=== PATIENT | male | born 1970 | race Caucasian/White ===

== ENCOUNTER 2016-11-25 06:08 | Inpatient (IN) ==
--- NOTE | 2016-11-25 06:43 | EKG Report ---
Stationary ECG Study [facility] ER Test Date: 11/25/2016 6:42:04 AM Pat Name: BOB REHMAN Department: Room: Gender: M Column Precaster: : 1970 Requested by: Pineda De Santiago Order Number: [id number] Reading MD: JORDI STOKES Intervals [place] Rate: 94 P: 49 PA: 169 QRS: 240 QRSD: 161 T: 29 QT: 402 QTc: 453 Interpretive Statements SINUS RHYTHM MARKED RIGHT AXIS DEVIATION RIGHT BUNDLE BRANCH BLOCK ANTEROSEPTAL MYOCARDIAL INFARCTION, OF INDETERMINATE AGE Electronically Signed On 11-25-16 07:05:58 CDT by JORDI STOKES [email or web address]
--- NOTE | 2016-11-25 06:52 | Emergency Department Note ---
Misbah Langley Hilary, am scribing for, and in the presence of, Pineda Plummer MD 06: 44. Kavitha Langley James D, MD, personally performed the services described in this documentation, ascribed by Marcela Crawley in my presence, and it is both accurate and complete 648 . Arrival - Arrival Chief Complaint: Extremity Problem Stated Complaint: possible staph infection ED Nursing Triage Note: C/C red streak running from pt right hand up his forearm , arm is painful. Went to [facility] ER yesterday, wound to right hand was cultured and pt given clindamycin (IV) and Rx. Pt states reddness and pain is worse now. Mode of Arrival: Ambulatory Limitations: No Limitations Source: Patient Time Seen by Provider: 11/25/16 06:26 - History of Present Illness HPI Narrative: Patient is a 46 year old white Male presenting to the ED with right hand and forearm pain with an onset of Friday. Went to [facility] ER yesterday and was given clindamycin and RX. He confirms that this is not the first time he has had this pain and denies any other complaints or problems in the ED. Onset (ago): day(s) Allergies/Adverse Reactions: Allergies Allergy/AdvReac Type Severity Reaction Status Date / Time No Known Allergies Allergy Verified 11/25/16 06:18 Home Medications: Home Medications Medication Instructions Recorded Confirmed Type Acetaminophen Tab [Tylenol Tab] 325 mg PO Q4H PRN #0 tablet 04/20/16 11/25/16 Rx Albuterol Inhaler [Proventil 2 puff INH Q4H PRN #1 inhaler 04/20/16 11/25/16 Rx Inhaler] Apixaban [Eliquis] 5 mg PO BID #60 tablet 04/20/16 11/25/16 Rx Aspirin Chew Tab 81 mg PO DAILY tablet 04/20/16 11/25/16 Rx Atorvastatin [Lipitor] 40 mg PO DAILY #30 tablet 04/20/16 11/25/16 Rx Carvedilol [Coreg] 6.25 mg PO BID #60 tablet 04/20/16 11/25/16 Rx Diltiazem Tab [Cardizem Tab] 60 mg PO BID #60 tablet 04/20/16 11/25/16 Rx Furosemide Tab [Lasix Tab] 40 mg PO DAILY #30 tablet 04/20/16 11/25/16 Rx Skin Healing Oint (Aquaphor) 1 applic TOP PRN PRN #0 ointment 04/20/16 11/25/16 Rx [Aquaphor] hydrALAZINE TAB [Apresoline Tab] 25 mg PO TID #90 tablet 04/20/16 11/25/16 Rx Review of System - Review of System 12 point system: reviewed and no additional remarkable complaints except as stated - Review of System Skin: Present: rash Medical,Surgical,& Family Hx - Medical History Cardio: History of: Cardiac Dysrhythmia (A-fib), CHF, Hypertension, [place] (APR 2015, proximal LAD stent) Neurology: History of: Migraine HEENT: History of: Dental Problems (poor dentition. He is having teeth removed and plans to get dentures) Endocrine: History of: Dyslipidemia, Endocrine Problems (anxiety chest obesity, weighs 486 pounds.) Musculoskeletal: History of: Musculoskeletal Problems (left knee pain) - Surgical History Cardiac Surgeries: Sugical HX of: Cardiac Catheterization Abdominal Surgeries: Surgical HX of: Appendectomy, Cholecystectomy - Family History Family History: Reports;: Family Cancer (mom-lung, dad-throat, dad-skin), Family Diabetes (dad) - Social History Smoking Status: Never smoker Frequency of Alcohol Use: None Type of Drug Use: None Exam Physical Examination: GENERAL: This is a well-nourished, well-developed male in no apparent distress. VITAL SIGNS: HEENT: Head is normocephalic and atraumatic. Pupils are equally round and reactive to light. Extraocular movement are intact. Oropharynx is benign with moist mucous membranes. NECK: Neck is soft and supple without tenderness. There are no masses. There is no lymphadenopathy. LUNGS: Lungs are clear to auscultation bilaterally. Chest rises symmetrically. There is no chest wall tenderness. CV: Heart is regular rate and rhythm without murmurs, rubs, or gallops. ABDOMEN: Abdomen is soft, non-tender to palpation. There are no abnormal masses palpated. There is no organomegaly. Bowel sounds are present and active. SKIN: Left hand fluctuant and errythema radiating up his arm. EXTREMITIES: Patient has an area of erythema and induration on the dumont surface of the Right hand. Erythema extends up the medial side of the arm to above the elbow. NEUROLOGIC: Awake, alert, and oriented x4. Cranial nerves II through XII are grossly intact. There are no motorsensory deficits. PSYCHIATRIC: Normal affect. Normal mood. Vital Signs: Vital Signs Temperature 97.8 F 11/25/16 06:22 Pulse Rate 86 11/25/16 07:00 Respiratory Rate 18 11/25/16 07:00 Blood Pressure 165/97 11/25/16 07:00 O2 Sat by Pulse Oximetry 97 11/25/16 07:00 - General General appearance: alert, in no apparent distress Course - Consultations Consultation #1: Discussed with Dr. Esqueda. Patient will need to be taken to surgery for I&D Time: 07:15 Results - Labs CBC & BMP: 11/25/16 06:42 Lab Results: I have reviewed the patients labs Labs: Laboratory Tests 11/25/16 06:42 WBC 9.2 RBC 4.42 Hgb 13.4 L Hct 40.3 L - EKG EKG results: interpreted by ERMD - Impressions EKG: Normal sinus rhythm with rate of 94, right bundle branch block, right axis deviation. Nonspecific ST-T wave changes. - Diagnostic Findings Procedure: Chest x-ray: image reviewed by me, X-ray: image reviewed by me ( Right hand x-ray:) Disposition Clinical Impression: Abscess of right hand, Right arm cellulitis Case discussed with: patient Disposition: Still a Patient Condition: Stable
[2016-11-25] MEDS ORDERED: HYDROmorphone 2 MG/1 ML VIAL IV STA (06:53)
[2016-11-25] MEDS ORDERED: ONDANSETRON 4 MG/2 ML VIAL IV STA (06:53)
[2016-11-25] MEDS ORDERED: HYDROmorphone 2 MG/1 ML VIAL ONE (06:57)
[2016-11-25] MEDS ORDERED: ONDANSETRON 4 MG/2 ML VIAL ONE (06:57)
[2016-11-25 07:12] LABS: Basophils % 0.3 % (0.0-0.8); Eosinophils # 0.1 10*3/uL (0.0-0.87); Eosinophils % 0.8 % (0.00-10.9); Hematocrit 40.3 VOL% (42.0-52.0); Hemoglobin 13.4 GM/DL (14.0-18.0); Immature Granulocytes % 0.3 %; Immature Granulocytes Absolute 0.03 #; Lymphocytes # 2.4 10*3/uL (1.4-4.0); Mean Corpuscular HGB Conc 33.3 GM/DL (32-36); Mean Corpuscular Hemoglobin 30 PG (27-34); Mean Corpuscular Volume 91.2 FL (87-102); Mean Platelet Volume 11.1 FL (9.6-12.0); Monocytes # 0.8 10*3/uL (0.11-0.8); Monocytes % 8.4 % (1.7-12.7); Neutrophils # 5.9 10*3/uL (1.4-7.4); Neutrophils % 64.2 % (38.7-73.9); Platelet Count 157 T/CUMM (130-400); Red Blood Count 4.42 MC/CUMM (3.8-5.5); Red Cell Distribution Width 14.2 % (9.3-17.3); White Blood Count 9.2 T/CUMM (4-12)
[2016-11-25 07:22] LABS: INR 1.1; PT Patient Result 11.3 SECS
[2016-11-25] MEDS ORDERED: CLINDAMYCIN INJ 900 MG in PREMIX 1 EACH IV ONE (07:40)
[2016-11-25] MEDS ORDERED: ONDANSETRON 4 MG/2 ML VIAL IV PRN (07:40)
[2016-11-25] MEDS ORDERED: MAGNESIUM HYDROXIDE SUSP 30 ML UDCUP PO PRN ×2 (07:40→12:03)
[2016-11-25 07:44] LABS: Albumin 3.5 G/DL (3.4-5.0); Bilirubin,Total 0.8 MG/DL (0.2-1.0); Calcium 8.4 MG/DL (8.5-10.1); Osmolality,Calculated 277.8 MOS/KG (273-304); Total Protein 6.7 G/DL (6.4-8.3)
--- NOTE | 2016-11-25 07:53 | XRay Report ---
History is respiratory distress atrial fibrillation Comparison 04/19/2016 The cardiac silhouette is moderately enlarged. There is vascular congestion with minimal interstitial edema however there is less pronounced appearance than on the prior study. No more focal consolidation is seen. Confluent shadows overlie the right upper chest Impression: Mild Pulmonary edema PROCEDURE INTERPRETED AT [facility] DEPARTMENT OF RADIOLOGY Final Report Signed by: Dr. Es Parkinson
--- NOTE | 2016-11-25 07:56 | XRay Report ---
Right hand, 3 views History right hand abscess No acute osseous, articular, or soft tissue abnormality seen. Impression: No acute pathology seen. PROCEDURE INTERPRETED AT [facility] DEPARTMENT OF RADIOLOGY Final Report Signed by: Dr. Es Parkinson
--- NOTE | 2016-11-25 08:30 | Orthopedic History & Physical ---
Assessment and Plan (1) Abscess of right hand Status: Acute Assessment and plan: Discussed findings with patient today. I recommended I&D of hand with admission for IV antibiotics until we have culture results. Risks and benefits were discussed, he voiced understanding and desired to proceed. Risks discussed, but are not limited to, bleeding, persistent infection, damage to nerves, recurrence, stiffness of the digits, need for revision surgery. We will get him on the schedule for today. He did eat breakfast at 5 AM. Current Visit: Yes History of Present Illness Chief complaint: Right hand infection History of present illness: Mr. Jin is a 46 year old male who has a 48 hour history of pain and swelling in the right hand. He was seen in outside emergency department yesterday, given IV and oral antibiotics. His symptoms worsen so he presented to [facility] emergency department this morning. He denies any constitutional symptoms. Had a previous injury to this hand approximately 15 years ago with a subsequent infection about 12 years ago, but has had no recent issues. He does state that he previously had a staph infection. Home Medications Medication Instructions Recorded Confirmed Type Acetaminophen Tab [Tylenol Tab] 325 mg PO Q4H PRN #0 tablet 04/20/16 11/25/16 Rx Albuterol Inhaler [Proventil 2 puff INH Q4H PRN #1 inhaler 04/20/16 11/25/16 Rx Inhaler] Apixaban [Eliquis] 5 mg PO BID #60 tablet 04/20/16 11/25/16 Rx Aspirin Chew Tab 81 mg PO DAILY tablet 04/20/16 11/25/16 Rx Atorvastatin [Lipitor] 40 mg PO DAILY #30 tablet 04/20/16 11/25/16 Rx Carvedilol [Coreg] 6.25 mg PO BID #60 tablet 04/20/16 11/25/16 Rx Diltiazem Tab [Cardizem Tab] 60 mg PO BID #60 tablet 04/20/16 11/25/16 Rx Furosemide Tab [Lasix Tab] 40 mg PO DAILY #30 tablet 04/20/16 11/25/16 Rx Skin Healing Oint (Aquaphor) 1 applic TOP PRN PRN #0 ointment 04/20/16 11/25/16 Rx [Aquaphor] hydrALAZINE TAB [Apresoline Tab] 25 mg PO TID #90 tablet 04/20/16 11/25/16 Rx Allergies Allergy/AdvReac Type Severity Reaction Status Date / Time No Known Allergies Allergy Verified 11/25/16 08:27 12 point system: reviewed and no additional remarkable complaints except as stated Medical,Surgical,& Family Hx - Medical History Cardio: History of: Cardiac Dysrhythmia (A-fib), CHF, Hypertension, [place] (APR 2015, proximal LAD stent) Neurology: History of: Migraine HEENT: History of: Dental Problems (poor dentition. He is having teeth removed and plans to get dentures) Endocrine: History of: Dyslipidemia, Endocrine Problems (anxiety chest obesity, weighs 486 pounds.) Musculoskeletal: History of: Musculoskeletal Problems (left knee pain) - Surgical History Cardiac Surgeries: Sugical HX of: Cardiac Catheterization Abdominal Surgeries: Surgical HX of: Appendectomy, Cholecystectomy - Family History Family History: Reports;: Family Cancer (mom-lung, dad-throat, dad-skin), Family Diabetes (dad) - Social History Smoking Status: Never smoker Frequency of Alcohol Use: None Type of Drug Use: None Exam - Constitutional Vitals: Period Temp Pulse Resp BP Sys/Yousif Pulse Ox Last 24 Hr 97.8 F-97.8 F 83-100 18-20 163-165/89-97 95-97 Exam: General appearance: no acute distress Head exam: normal inspection Eye exam: EOMI Neck exam: normal inspection Respiratory exam: clear to auscultation bilaterally Cardiovascular exam: regular GI/Abdominal exam: normal bowel sounds Right upper extremity: Erythema in the palm streaking up toward the medial elbow. He has a small 1 x 1 cm abscess in the central aspect of the erythematous portion which along the hyperthenar eminence. He can wiggle his fingers. He has brisk capillary refill. Sensation is intact. Results - Labs CBC & BMP: 11/25/16 06:42 11/25/16 06:42 - Diagnostic Findings Procedure: X-ray: image reviewed by me (Grafts the right hand were reviewed, no foreign bodies noted, soft tissue swelling)
[2016-11-25] MEDS ORDERED: VANCOMYCIN INJ 1,000 MG in SODIUM CHLORIDE 0.9% 250 ML IV ONE (08:31)
[2016-11-25] MEDS ORDERED: VANCOMYCIN 1,000 MG VIAL ONE ×2 (09:09→11:43)
[2016-11-25] MEDS ORDERED: FAMOTIDINE 20 MG TABLET PO ONE (09:22)
[2016-11-25] MEDS ORDERED: METOCLOPRAMIDE 10 MG TABLET PO ONE (09:23)
[2016-11-25] MEDS ORDERED: LACTATED RINGERS 1,000 ML IV SCH (09:30)
[2016-11-25] MEDS ORDERED: SODIUM CHLORIDE 0.9% 1,000 ML IV SCH (09:30)
[2016-11-25] MEDS ORDERED: LIDOCAINE 2% 5 ML VIAL ONE (11:26)
[2016-11-25] MEDS ORDERED: SKIN HEALING OINT (AQUAPHOR) 50 GM TUBE TOP PRN (12:03)
[2016-11-25] MEDS ORDERED: ACETAMINOPHEN 325 MG TABLET PO PRN (12:03)
[2016-11-25] MEDS ORDERED: KETAMINE 500 MG/10 ML VIAL ONE (12:11)
[2016-11-25] MEDS ORDERED: KETOROLAC 15 MG/1 ML VIAL IV PRN (14:00)
[2016-11-25] MEDS ORDERED: ALBUTEROL 2.5 MG/3 ML NEB RESP TX PRN (14:00)
[2016-11-25 15:09] LABS: Free T4 (Free Thyroxine) 0.9 NG/DL (0.76-1.46); Risk Ratio 3.35; T4 (Thyroxine) 6.8 UG/DL (4.7-13.3); Thyroid Stimulating Hormone 0.95 uIU/ml (0.358-3.74); VLDL CHOLESTEROL 25.6 MG/DL
--- NOTE | 2016-11-25 15:30 | Hospitalist Consult Note ---
Assessment and Plan - Time spent with patient Time spent with patient: Less than 30 minutes (1) Hypertension Status: Acute Assessment and plan: Will resume all home medications as previously ordered. Will adjust accordingly. Current Visit: No (2) Hyperlipidemia Status: Acute Assessment and plan: Will manage medically throughout the clinical encounter. Obtain lipid panel in AM. Current Visit: No (3) Abscess of right hand Status: Acute Assessment and plan: Will continue antibiotic therapy as ordered per surgery. Current Visit: Yes History of Present Illness - Data of Consult Consult date: 11/25/16 Requesting Physician: Reinier Esqueda - Consult Narrative Reason for consult: Medical management History of present illness: Mr. Jin is a 46 year old male that presented to the ED this morning with a chief compliant of right hand and forearm pain. Apparently; he was seen at [facility] for the same presenting complaint on Friday. He was evaluated and given clindamycin. He reports that his symptoms failed to improve and that the pain became unbearable; which warranted him to seek medical attention. He seen and evaluated in the ED and a surgical consult was requested. He was seen per surgery and subsequently underwent a incision and drainage of the right hand this afternoon. He has a rather complicated medical history of obstructive sleep apnea, hypertension, morbid obesity, hyperlipdemia , hypertension, atrial fibrillation with RVR, chronic renal failure, and cellulitis. Due to his extensive medical history, we were consulted for medical management. CC: Reinier Esqueda MD - Home Medications and Allergies Home Medications: Home Medications Medication Instructions Recorded Confirmed Type Acetaminophen Tab [Tylenol Tab] 325 mg PO Q4H PRN #0 tablet 04/20/16 11/25/16 Rx Albuterol Inhaler [Proventil 2 puff INH Q4H PRN #1 inhaler 04/20/16 11/25/16 Rx Inhaler] Apixaban [Eliquis] 5 mg PO BID #60 tablet 04/20/16 11/25/16 Rx Aspirin Chew Tab 81 mg PO DAILY tablet 04/20/16 11/25/16 Rx Atorvastatin [Lipitor] 40 mg PO DAILY #30 tablet 04/20/16 11/25/16 Rx Carvedilol [Coreg] 6.25 mg PO BID #60 tablet 04/20/16 11/25/16 Rx Diltiazem Tab [Cardizem Tab] 60 mg PO BID #60 tablet 04/20/16 11/25/16 Rx Furosemide Tab [Lasix Tab] 40 mg PO DAILY #30 tablet 04/20/16 11/25/16 Rx Skin Healing Oint (Aquaphor) 1 applic TOP PRN PRN #0 ointment 04/20/16 11/25/16 Rx [Aquaphor] hydrALAZINE TAB [Apresoline Tab] 25 mg PO TID #90 tablet 04/20/16 11/25/16 Rx Allergies/Adverse Reactions: Allergies Allergy/AdvReac Type Severity Reaction Status Date / Time No Known Allergies Allergy Verified 11/25/16 08:27 Medical,Surgical,& Family Hx - Medical History Cardio: History of: Cardiac Dysrhythmia (A-fib), CHF, Hypertension, CT (APR 2015, proximal LAD stent) Neurology: History of: Migraine No history of: Seizures HEENT: History of: Dental Problems (poor dentition. He is having teeth removed and plans to get dentures) Endocrine: History of: Dyslipidemia, Endocrine Problems (anxiety chest obesity, weighs 486 pounds.) Respiratory: History of: Obstructive Sleep Apnea (c-pap) Musculoskeletal: History of: Musculoskeletal Problems (left knee pain) - Surgical History Cardiac Surgeries: Sugical HX of: Cardiac Catheterization HEENT Surgeries: Surgical HX of: Tonsilectomy & Adenoidectomy Abdominal Surgeries: Surgical HX of: Appendectomy, Cholecystectomy - Family History Family History: Reports;: Family Cancer (mom-lung, dad-throat, dad-skin), Family Diabetes (dad) - Social History Smoking Status: Never smoker Frequency of Alcohol Use: None Type of Drug Use: None 12 point system: reviewed and no additional remarkable complaints except as stated Exam - Constitutional Vitals: Period Temp Pulse Resp BP Sys/Yousif Pulse Ox Last 24 Hr 97.6 F-98.6 F 83-104 14-20 120-166/73-98 93-99 General appearance: normal weight, morbidly obese - Head Head exam: Present: normal inspection, normocephalic, atraumatic - Eye Eye exam: Present: EOMI. Absent: conjunctival injection Pupils: Present: VALERI, normal accommodation - ENT ENT exam: Present: normal exam - Neck Neck exam: Present: normal inspection. Absent: lymphadenopathy, meningismus, tenderness, thyromegaly - Respiratory Respiratory exam: Present: decreased breath sounds. Absent: rales, rhonchi, stridor, wheezes - Cardiovascular Cardiovascular exam: Present: regular rate and rhythm. Absent: gallop, JVD, rubs - GI/Abdominal GI/Abdominal exam: Present: normal bowel sounds, soft - Extremities Exam Extremities exam: Present: edema - Back Exam Back exam: Present: normal inspection - Neurological Exam Neurological exam: Present: alert, oriented X3, CN II-XII intact - Psychiatric Psychiatric exam: Present: normal affect - Skin Skin exam: Present: normal color, warm, dry Results - Labs CBC & BMP: 11/25/16 06:42 11/25/16 06:42 Lab Results: I have reviewed the past 24 hour labs
[2016-11-25] MEDS: hydrALAZINE 25 MG TABLET PO SCH ×2 (15:53→21:26)
[2016-11-25] MEDS: ACETAMINOPHEN 500 MG TABLET PO SCH ×2 (15:57→21:26)
[2016-11-25] MEDS ORDERED: DEXTROSE 50% 25 GM/50 ML VIAL IV PRN (16:20)
[2016-11-25] MEDS ORDERED: GLUCAGON 1 MG VIAL IM PRN (16:20)
[2016-11-25] MEDS: CARVEDILOL 6.25 MG TABLET PO SCH (18:11)
[2016-11-25] MEDS: INSULIN LISPRO 100 UNIT/ML SUBCUT SCH ×2 (19:31→21:26)
--- NOTE | 2016-11-25 19:43 | Anesthesia ---
Anesthesia Post OP - Post Ansesthetic Evaluation Patient seen in post op: Yes Resp: within normal limits CV: within normal limits Mental: within normal limits Temp: within normal limits [id number]: within normal limits Nausea and Vomiting: within normal limits Pain: within normal limits
[2016-11-25] MEDS: HYDROmorphone 2 MG/1 ML VIAL IV PRN (20:03)
[2016-11-25] MEDS: VANCOMYCIN INJ 3,000 MG in SODIUM CHLORIDE 0.9% 500 ML IV SCH (20:06)
[2016-11-25] MEDS: APIXABAN 5 MG TABLET PO SCH (21:25)
[2016-11-25] MEDS: DILTIAZEM 60 MG TABLET PO SCH (21:25)
[2016-11-26] MEDS: SODIUM CHLORIDE 0.9% 1,000 ML IV SCH ×3 (03:23→10:02)
[2016-11-26] MEDS: ACETAMINOPHEN 500 MG TABLET PO SCH ×2 (04:18→09:49)
--- NOTE | 2016-11-26 06:38 | Orthopedic Progress Note ---
Assessment and Plan (1) Abscess of right hand Status: Acute Assessment and plan: cont IV abx f/u Cx daily packing change appreciated hospitalist c/s Current Visit: Yes Orthopedics - Subjective Interval history: No new c/o no purulence noted. erythema in palm and forearm unchanged. cx pending Exam - Constitutional Vitals: Period Temp Pulse Resp BP Sys/Yousif Pulse Ox Last 24 Hr 96.3 F-98.8 F 77-104 14-20 120-175/72-99 93-98 Results - Labs CBC & BMP: 11/26/16 06:16 11/26/16 06:16
[2016-11-26 06:41] LABS: Basophils % 0.2 % (0.0-0.8); Eosinophils # 0.1 10*3/uL (0.0-0.87); Eosinophils % 1.3 % (0.00-10.9); Hematocrit 41.3 VOL% (42.0-52.0); Immature Granulocytes % 0.2 %; Immature Granulocytes Absolute 0.02 #; Lymphocytes # 1.7 10*3/uL (1.4-4.0); Lymphocytes % 20.4 % (21.2-54.2); Mean Corpuscular HGB Conc 31.5 GM/DL (32-36); Mean Corpuscular Hemoglobin 30 PG (27-34); Mean Corpuscular Volume 93.9 FL (87-102); Mean Platelet Volume 10.4 FL (9.6-12.0); Monocytes # 0.7 10*3/uL (0.11-0.8); Monocytes % 7.6 % (1.7-12.7); Neutrophils % 70.3 % (38.7-73.9); Platelet Count 151 T/CUMM (130-400); Red Cell Distribution Width 14.2 % (9.3-17.3); White Blood Count 8.5 T/CUMM (4-12)
[2016-11-26 07:13] LABS: Albumin 3.4 G/DL (3.4-5.0); Bilirubin,Total 1.1 MG/DL (0.2-1.0); Calcium 8.3 MG/DL (8.5-10.1); Magnesium 2.2 MG/DL (1.8-2.4); Osmolality,Calculated 283.1 MOS/KG (273-304); Phosphorous 2.7 MG/DL (2.5-4.9); Total Protein 6.4 G/DL (6.4-8.3)
--- NOTE | 2016-11-26 07:50 | XRay Report ---
Referring Physician: ARNIE Mann Exam: XR chest 1V portable Date: November 26, 2016 at 6:04 AM Reason: COPD Comparison: Chest one view portable November 25, 2016 Findings: The cardiac silhouette is again enlarged. The interstitial markings are slightly prominent bilaterally, which could reflect minimal pulmonary edema. No pneumothorax or pleural effusion is identified. No acute osseous process is seen. Impression: There has been no significant change. PROCEDURE INTERPRETED AT [facility] DEPARTMENT OF RADIOLOGY Final Report Signed by: Dr. Samir Samuel
[2016-11-26] MEDS: INSULIN LISPRO 100 UNIT/ML SUBCUT SCH ×4 (09:45→20:02)
--- NOTE | 2016-11-26 09:45 | Hospitalist Progress Note ---
Assessment and Plan (1) Morbid obesity Status: Chronic Assessment and plan: 1 afib- tele looks like sinus rhythm. On eliquis and betablocker. 2)WILLIS- use CPAP 3)morbid obesity 4)hyperlipidemia- cont meds 5)HTN- controlled 6)h/o NC 7)diabetes- He told me yesterday that he didn't have diabetes, (he is on multiple meds for it) but that he worried he did. he has seen the educators in the past, and I will ask them to see him again today. he has a glucometer but doesn't use it. Continue his home meds. HGBA1C looks ok. Current Visit: No (2) Obstructive sleep apnea Status: Chronic Current Visit: No (3) Smoker Status: Chronic Current Visit: No (4) Hyperlipidemia Status: Acute Current Visit: No (5) History of NC (myocardial infarction) Status: Chronic Current Visit: No (6) Hyperglycemia Status: Acute Current Visit: No (7) Obesity hypoventilation syndrome Status: Chronic Current Visit: No (8) Chronic renal failure Status: Acute Current Visit: No (9) Abscess of right hand Status: Acute Current Visit: Yes Hospitalist: Subjective Interval history: Mr Jin is doing well. No new complaints. He says the erythema in his hand has improved a lot and there is less redness in his arm as well. No CP, no shortness of breath, no palpitations. Tele with NSR. Exam - Constitutional Vitals: Period Temp Pulse Resp BP Sys/Yousif Pulse Ox Last 24 Hr 96.3 F-98.8 F 77-104 14-20 120-175/72-99 93-98 General appearance: no acute distress, morbidly obese - Eye Eye exam: Present: EOMI. Absent: scleral icterus - Respiratory Respiratory exam: Present: clear to auscultation bilaterally - Cardiovascular Cardiovascular exam: Present: regular rate and rhythm - GI/Abdominal GI/Abdominal exam: Present: normal bowel sounds, soft. Absent: tenderness - Extremities Exam Extremities exam: Absent: edema - Neurological Exam Neurological exam: Present: alert, oriented X3 - Skin Skin exam: Present: warm, dry Results - Labs CBC & BMP: 11/26/16 06:16 11/26/16 06:16 Lab Results: I have reviewed the past 24 hour labs (tele with NSR)
[2016-11-26] MEDS: DILTIAZEM 60 MG TABLET PO SCH ×2 (09:48→20:01)
[2016-11-26] MEDS: FUROSEMIDE 40 MG TABLET PO SCH (09:48)
[2016-11-26] MEDS: hydrALAZINE 25 MG TABLET PO SCH ×3 (09:48→20:01)
[2016-11-26] MEDS: ATORVASTATIN 40 MG TABLET PO SCH (09:49)
[2016-11-26] MEDS: VANCOMYCIN INJ 3,000 MG in SODIUM CHLORIDE 0.9% 500 ML IV SCH ×2 (09:49→20:02)
[2016-11-26] MEDS: APIXABAN 5 MG TABLET PO SCH ×2 (09:49→20:01)
[2016-11-26] MEDS: CARVEDILOL 6.25 MG TABLET PO SCH ×2 (09:49→16:00)
[2016-11-26] MEDS: ASPIRIN CHEW 81 MG TABLET PO SCH (09:49)
[2016-11-26] MEDS: HYDROmorphone 2 MG/1 ML VIAL IV PRN (09:54)
[2016-11-26] MEDS ORDERED: ACETAMINOPHEN 325 MG TABLET PO PRN (16:00)
[2016-11-27] MEDS: CARVEDILOL 6.25 MG TABLET PO SCH ×2 (10:56→19:49)
[2016-11-27] MEDS: DILTIAZEM 60 MG TABLET PO SCH ×2 (10:57→21:10)
[2016-11-27] MEDS: ASPIRIN CHEW 81 MG TABLET PO SCH (10:57)
[2016-11-27] MEDS: ATORVASTATIN 40 MG TABLET PO SCH (10:58)
[2016-11-27] MEDS: FUROSEMIDE 40 MG TABLET PO SCH (10:58)
[2016-11-27] MEDS: hydrALAZINE 25 MG TABLET PO SCH ×3 (10:59→21:11)
[2016-11-27] MEDS: APIXABAN 5 MG TABLET PO SCH ×2 (11:00→21:10)
[2016-11-27] MEDS: INSULIN LISPRO 100 UNIT/ML SUBCUT SCH ×4 (11:00→21:30)
[2016-11-27] MEDS: VANCOMYCIN INJ 3,000 MG in SODIUM CHLORIDE 0.9% 500 ML IV SCH (11:09)
--- NOTE | 2016-11-27 14:15 | Hospitalist Progress Note ---
Assessment and Plan (1) Morbid obesity Status: Chronic Assessment and plan: 1 afib- tele looks like sinus rhythm. On eliquis and betablocker. 2)WILLIS- use CPAP 3)morbid obesity 4)hyperlipidemia- cont meds 5)HTN- controlled 6)h/o NE 7)diabetes- controlled with SSI, diet now. Current Visit: No (2) Obstructive sleep apnea Status: Chronic Current Visit: No (3) Smoker Status: Chronic Current Visit: No (4) Hyperlipidemia Status: Acute Current Visit: No (5) History of NE (myocardial infarction) Status: Chronic Current Visit: No (6) Hyperglycemia Status: Acute Current Visit: No (7) Obesity hypoventilation syndrome Status: Chronic Current Visit: No (8) Chronic renal failure Status: Acute Current Visit: No (9) Abscess of right hand Status: Acute Current Visit: Yes Hospitalist: Subjective Interval history: Mr Jin is about the same. He says his hand isn't throbbing as much as it was. Exam - Constitutional Vitals: Period Temp Pulse Resp BP Sys/Yousif Pulse Ox Last 24 Hr 97.7 F-98.9 F 81-88 18-24 143-166/80-91 92-94 General appearance: no acute distress, morbidly obese - Head Head exam: Present: normocephalic, atraumatic - Eye Eye exam: Present: EOMI. Absent: scleral icterus - Respiratory Respiratory exam: Present: clear to auscultation bilaterally - Cardiovascular Cardiovascular exam: Present: regular rate and rhythm - GI/Abdominal GI/Abdominal exam: Present: normal bowel sounds, soft. Absent: tenderness - Extremities Exam Extremities exam: Absent: edema - Skin Skin exam: Present: erythema (hand wrapped. the lymphangitis in right forearm is fading and does not pass his elbow. ) Results - Labs CBC & BMP: 11/26/16 06:16 11/26/16 06:16 Lab Results: I have reviewed the past 24 hour labs
--- NOTE | 2016-11-27 17:35 | Orthopedic Progress Note ---
Assessment and Plan (1) Abscess of right hand Status: Acute Assessment and plan: d/c Vanc, change to Teflaro since erythema unchanged f/u Cx daily packing change appreciate hospitalist c/s Current Visit: Yes Orthopedics - Subjective Interval history: Pt states his hand feels better erythema is unchanged from preop, less tender Cx - no growth Exam - Constitutional Vitals: Period Temp Pulse Resp BP Sys/Yousif Pulse Ox Last 24 Hr 97.7 F-98.9 F 81-87 18-22 143-166/80-88 92-93 Results - Labs CBC & BMP: 11/26/16 06:16 11/26/16 06:16
[2016-11-27] MEDS: CEFTAROLINE 600 MG in SODIUM CHLORIDE 0.9% 100 ML IV SCH (22:51)
--- NOTE | 2016-11-28 07:55 | Orthopedic Progress Note ---
Assessment and Plan (1) Abscess of right hand Status: Acute Assessment and plan: Continue Teflaro f/u Cx daily dressing change We will consider discharge home tomorrow as long as symptoms are improved Current Visit: Yes Orthopedics - Subjective Interval history: No new complaints. Pain appears to be improving. On exam I think his erythema looks a little better particularly in the palm Cultures negative Exam - Constitutional Vitals: Period Temp Pulse Resp BP Sys/Yousif Pulse Ox Last 24 Hr 97.5 F-98.2 F 80-85 16-20 147-176/84-89 90-96 Results - Labs CBC & BMP: 11/26/16 06:16 11/26/16 06:16
[2016-11-28] MEDS: INSULIN LISPRO 100 UNIT/ML SUBCUT SCH ×3 (08:48→23:06)
--- NOTE | 2016-11-28 09:23 | Hospitalist Progress Note ---
Assessment and Plan (1) Morbid obesity Status: Chronic Assessment and plan: 1 afib- tele looks like sinus rhythm. On eliquis and betablocker. DC monitor. 2)WILLIS- use CPAP 3)morbid obesity 4)hyperlipidemia- cont meds 5)HTN- controlled 6)h/o [place] 7)diabetes- controlled with SSI, diet now. 8)abscess/cellulitis of right hand- Dr Esqueda changed him to Teflaro yesterday. Current Visit: No (2) Obstructive sleep apnea Status: Chronic Current Visit: No (3) Smoker Status: Chronic Current Visit: No (4) Hyperlipidemia Status: Acute Current Visit: No (5) History of VA (myocardial infarction) Status: Chronic Current Visit: No (6) Hyperglycemia Status: Acute Current Visit: No (7) Obesity hypoventilation syndrome Status: Chronic Current Visit: No (8) Chronic renal failure Status: Acute Current Visit: No (9) Abscess of right hand Status: Acute Current Visit: Yes Hospitalist: Subjective Interval history: NO complaints, feels ok. No events on tele- will stop quality assurance monitor. Exam - Constitutional Vitals: Period Temp Pulse Resp BP Sys/Yousif Pulse Ox Last 24 Hr 97.5 F-98.2 F 80-85 16-20 147-176/84-89 90-96 General appearance: no acute distress, morbidly obese - Respiratory Respiratory exam: Present: clear to auscultation bilaterally - Cardiovascular Cardiovascular exam: Present: regular rate and rhythm - GI/Abdominal GI/Abdominal exam: Present: normal bowel sounds, soft - Extremities Exam Extremities exam: Present: other (right hand dressed, still with lymphangitic streak up forearm, fainter than yesterday. ) Results - Labs CBC & BMP: 11/26/16 06:16 11/26/16 06:16 Lab Results: I have reviewed the past 24 hour labs
[2016-11-28] MEDS: ASPIRIN CHEW 81 MG TABLET PO SCH (09:37)
[2016-11-28] MEDS: DILTIAZEM 60 MG TABLET PO SCH ×2 (09:38→22:02)
[2016-11-28] MEDS: APIXABAN 5 MG TABLET PO SCH ×2 (09:38→22:02)
[2016-11-28] MEDS: hydrALAZINE 25 MG TABLET PO SCH ×3 (09:38→22:02)
[2016-11-28] MEDS: CARVEDILOL 6.25 MG TABLET PO SCH ×2 (09:39→17:23)
[2016-11-28] MEDS: FUROSEMIDE 40 MG TABLET PO SCH (09:40)
[2016-11-28] MEDS: ATORVASTATIN 40 MG TABLET PO SCH (09:44)
[2016-11-28] MEDS: CEFTAROLINE 600 MG in SODIUM CHLORIDE 0.9% 100 ML IV SCH ×2 (10:15→22:03)
[2016-11-29] MEDS: INSULIN LISPRO 100 UNIT/ML SUBCUT SCH ×2 (08:46→12:15)
[2016-11-29] MEDS: APIXABAN 5 MG TABLET PO SCH (09:11)
[2016-11-29] MEDS: FUROSEMIDE 40 MG TABLET PO SCH (09:11)
[2016-11-29] MEDS: ATORVASTATIN 40 MG TABLET PO SCH (09:11)
[2016-11-29] MEDS: ASPIRIN CHEW 81 MG TABLET PO SCH (09:11)
[2016-11-29] MEDS: hydrALAZINE 25 MG TABLET PO SCH (09:12)
[2016-11-29] MEDS: DILTIAZEM 60 MG TABLET PO SCH (09:12)
[2016-11-29] MEDS: CARVEDILOL 6.25 MG TABLET PO SCH (09:13)
[2016-11-29] MEDS: CEFTAROLINE 600 MG in SODIUM CHLORIDE 0.9% 100 ML IV SCH (09:19)
--- NOTE | 2016-11-29 09:24 | Discharge Summary ---
Hospital Course - Hospital Course Hospital Course: 46-year-old male admitted to hospital with a cellulitis of the right upper extremity and abscess of the right hand. He was taken to the operating suite where he underwent irrigation and debridement of the abscess which was superficial. He was then transferred for stable condition postoperatively. He was initially treated with IV vancomycin was not making very much progress, he was switched to Teflaro and his erythema and symptoms improved significantly. Unfortunately, his cultures were negative as he was on some antibiotics prior to admission. The hospitalist was consulted for aid in medical management due to his significant medical issues, he did have some elevated blood sugars which are treated with insulin. Once his clinical exam improved he was subsequently discharged home. Time of discharge his wounds are clean and dry without drainage. She had full motion of the digits with no swelling. His erythema in the forearm had resolved and he is nontender to palpation. Diagnosis - Discharge Diagnosis (1) Abscess of right hand Status: Acute Specialty Discharge - Follow Up or Referrals Follow up with: Reinier Esqueda MD [Physician] - 1 Week Discharge Plan - Discharge Data Disposition: Disch To Home/Self Care Condition at Discharge: Stable Discharge Diet: advance to your usual diet Hygiene: may shower Contact your physician if you experience:: fever over 101, Difficulty voiding, Redness or swelling, Nausea/Vomiting, Shortness of breath, Bleeding, pain uncontrolled by pain medications Wound / Dressing Care Instructions: daily dressing change. Ok to wash hand with soap and water - Discharge Medications New Acetaminophen Tab [Tylenol Tab] 650 mg PO Q6H PRN #0 tablet PRN Reason: Pain Mild (1-3) HYDROcodone/ACETAMIN 7.5-325 [[place] 7.5-325] 1 - 2 tablet PO Q4H PRN #30 tablet PRN Reason: Pain Moderate (4-7) Sulfameth/Trimeth 800-160 Tab [Bactrim DS Tab] 1 tablet PO BID #30 tablet Continue Acetaminophen Tab [Tylenol Tab] 325 mg PO Q4H PRN #0 tablet PRN Reason: fever, headache/body aches Albuterol Inhaler [Proventil Inhaler] 2 puff INH Q4H PRN #1 inhaler PRN Reason: Shortness Of Breath/Wheezing Apixaban [Eliquis] 5 mg PO BID #60 tablet Aspirin Chew Tab 81 mg PO DAILY tablet Atorvastatin [Lipitor] 40 mg PO DAILY #30 tablet Carvedilol [Coreg] 6.25 mg PO BID #60 tablet Diltiazem Tab [Cardizem Tab] 60 mg PO BID #60 tablet Furosemide Tab [Lasix Tab] 40 mg PO DAILY #30 tablet Skin Healing Oint (Aquaphor) [Aquaphor] 1 applic TOP PRN PRN #0 ointment PRN Reason: Dry Skin hydrALAZINE TAB [Apresoline Tab] 25 mg PO TID #90 tablet - Follow Up or Referral Follow Up: Reinier Esqueda MD [Physician] - 1 Week - Forms/Instructions Additional Discharge Instructions: follow- up with PCP for management of diabetes Exam - Constitutional Vitals: Period Temp Pulse Resp BP Sys/Yousif Pulse Ox Last 24 Hr 97.0 F-98.9 F 70-88 18-20 136-165/68-97 93-97 Discharge Results Procedures and tests throughout hospitalization: Pending Orders 11/30/16 04:00 Basic Metabolic Panel IN AM CBC [Comp Blood Count Auto Diff] IN AM Labs on day of discharge: Labs from last 24 hours 11/29/16 11/29/16 11/28/16 08:45 07:44 19:54 POC Glucose 123 H 75 155 H 11/28/16 11/28/16 16:11 11:05 POC Glucose 134 H 183 H DS: Provider Date of admission: 11/25/16 12:03 Primary care physician: . No PCP Attending physician on admission: Reinier Esqueda MD Consults: 11/25/16 14:16 Consult to Pharmacy [CONS] Routine Reason for Pharmacy Consult: Dose/Manage Vancomycin 11/26/16 09:16 Consult to [facility], Educator [CONS] Routine Reason for Pigment Mixer: Re-education Consult Comment: recommendations Discharging clinician: Reinier Esqueda MD
[2016-11-29] MEDS ORDERED: metFORMIN 500 MG TABLET PO SCH (10:00)
--- NOTE | 2016-11-29 11:13 | Hospitalist Progress Note ---
Assessment and Plan (1) Morbid obesity Status: Chronic Assessment and plan: 1 afib- tele looks like sinus rhythm. On eliquis and betablocker. 2)WILLIS- use CPAP 3)morbid obesity 4)hyperlipidemia- cont meds 5)HTN- controlled 6)h/o CO 7)diabetes- controlled with SSI, diet now. add metofrmin adn stop SSI at discharge. 8)abscess/cellulitis of right hand- Current Visit: No (2) Obstructive sleep apnea Status: Chronic Current Visit: No (3) Smoker Status: Chronic Current Visit: No (4) Hyperlipidemia Status: Acute Current Visit: No (5) History of CO (myocardial infarction) Status: Chronic Current Visit: No (6) Hyperglycemia Status: Acute Current Visit: No (7) Obesity hypoventilation syndrome Status: Chronic Current Visit: No (8) Chronic renal failure Status: Acute Current Visit: No (9) Abscess of right hand Status: Acute Current Visit: Yes Hospitalist: Subjective Interval history: MR Jin is feeling good today and DR Esqueda feels his infection has improved so that he can be discharged. Since admission he has required 6 U of humalog SSI. I recommend that he take metformin 500mg a day and follow up with DR Jeffery salazar regarding his diabetes treatment. If he stays on strict diabetic diet this may be sufficient, but he may not eat as carefully at home as he does here. Diabetes control will be important in resolving his current infection and in preventing new ones. He has seen the conservation educator and will check his sugars at home. Exam - Constitutional Vitals: Period Temp Pulse Resp BP Sys/Yousif Pulse Ox Last 24 Hr 97.0 F-98.9 F 70-88 18-20 136-163/68-83 93-97 General appearance: no acute distress - Respiratory Respiratory exam: Present: clear to auscultation bilaterally - Cardiovascular Cardiovascular exam: Present: regular rate and rhythm - Extremities Exam Extremities exam: Absent: edema Results - Labs CBC & BMP: 11/26/16 06:16 11/26/16 06:16 Specialty Discharge - Follow Up or Referrals Follow up with: Reinier Esqueda MD [Physician] - 12/05/16 2:00 pm
[2016-11-29 12:15] VITALS: BP 131/75
== END 2016-11-29 12:16 | disposition home or self-care (01) | DRG 580 ==
LOC: N.ED 06:08 → N.SDSINP 07:43 → N.2E 13:01
PROVIDERS: ADMIT Orthopaedic Surgery; ATTEND Orthopaedic Surgery